=== PATIENT | male | born 1945 | race Caucasian/White ===

== ENCOUNTER 2017-03-21 12:25 | Inpatient (IN) | payer MEDICARE, OTHER ==
[2017-03-21] VITALS (7 sets, daily range): BP systolic 91–172; BP diastolic 56–92; PULSE 66–82; RESP 18; TEMP 98.4–99.2; O2SAT 94–97
[2017-03-21] MEDS ORDERED: RESP: ALBUTEROL 2.5 MG/3 ML NEB (PRN) INH (14:00)
[2017-03-21] MEDS ORDERED: ACETAMINOPHEN 325 MG TAB PO PRN (14:00)
[2017-03-21] MEDS ORDERED: ONDANSETRON HCL 4 MG/2 ML VIAL IV PRN (14:00)
[2017-03-21] MEDS ORDERED: SODIUM CHLORIDE 0.9% FLUSH 10 ML FLUSH IV FLUSH PRN (14:00)
[2017-03-21] MEDS ORDERED: MISCELLANEOUS NURSING INFORMATION XX SCH (14:00)
[2017-03-21] MEDS ORDERED: CHLORHEXIDINE GLUCONATE 2 % 1 PACK (2 CLOTHS) TOP PRN (14:00)
[2017-03-21] MEDS ORDERED: SENNOSIDES 8.6 MG TAB PO PRN (14:00)
--- NOTE | 2017-03-21 14:09 | PD.CONS ---
[facility] Service Critical Care Medicine Consult Requested By Dr. Fishman Reason for Consult Critical care management. Left ICA stenosis/vertebral stenosis Primary Care Physician Unknown History of Present Illness This is a 71-year-old male. Date of admission 03/21/2017. Date of consultation 03/21/2017. Past medical history includes nephrolithiasis, tobaccoism. Patient originally was admitted to [facility] on . Patient recently presented there with acute onset of right-sided hand weakness/paresthesias. Patient was also noted to be hypertensive at the time. CT head revealed chronic right posterior lacunar infarcts with left cruz radiata abnormalities. No acute hemorrhage. Patient was evaluated by neurology not thought to be a candidate for TPA. Patient was admitted for workup of CVA. Pertinent imaging CT head - chronic right posterior lacunar infarct CT C-spine - multilevel's spinal stenosis/DDD MRI brain - left occipital lobe CVA/right parietal lobe CVA even MANDREL MAKER/MCA distribution CTA neck - 90% left ICA at C2 level, 80-90% left vertebral artery stenosis Ultrasound carotids - less than 50% right, greater than 70% left. Echocardiogram - EF 55-60%. Mild MR/TR. RSVP 31 mmHg Hemoglobin A1c - 5.5. TSH 1.28. Cholesterol 183. HDL 26. LDL 140. Triglycerides 85. Urine toxicology screen negative BMP/CBC normal. Coags normal. UA negative. Start on simvastatin 80 mg daily, aspirin 325 mg daily and Norvasc 10 mg daily. Patient was evaluated by vascular surgery. Recommended transferred facility with Dr. Fishman accepted for evaluation for surgery versus prior stent placement. Patient is currently complaining of paresthesias/numbness in his right upper externa. No dysdiadochokinesis. No other major neurological deficits on examination. Review of Systems Constitutional: DENIES: Fatigue, Fever, Weight gain Endocrine: DENIES: Polydipsia, Polyuria Eyes: DENIES: Blurred vision, Double Vision Ears, nose, mouth, throat: DENIES: Throat pain, Ear Pain, Odynophagia Respiratory: DENIES: Cough Cardiovascular: DENIES: Chest pain Gastrointestinal: DENIES: Abdominal pain Genitourinary: DENIES: Urgency Musculoskeletal: DENIES: Back pain, Neck pain Integumentary: DENIES: Abnormal pigmentation Hematologic/lymphatic: DENIES: Bruising Immunologic/allergic: DENIES: Eczema Neurologic: DENIES: Abnormal gait Psychiatric: DENIES: Anxiety, Confusion, Depression Past Family Social History Allergies: Coded Allergies: No Known Allergies (Verified Allergy, Severe, 08/30/06) Past Medical History Nephrolithiasis One quarter pack per day tobaccoism Past Surgical History Laser lithotripsy Reported Medications Simvastatin 80 mg by mouth daily Aspirin 325 mg by mouth daily Colace 100 mg by mouth twice a day Norvasc 10 mg by mouth daily Active Ordered Medications Reviewed in EMR Family History Father with Alzheimer's disease. . No history of sudden , CVA, [place] , hypertension or diabetes Social History One quarter pack per day tobacco. No alcohol or IV drug use. Urine tox Screen Negative at [facility]. Physical Exam Vital Signs Vital Signs Date Time Temp Pulse Resp B/P Pulse Ox O2 Delivery O2 Flow Rate FiO2 03/21/17 12:47 99.2 82 18 172/92 97 Physical Exam GENERAL: 71-year-old male, critically ill currently resting in bed in no acute distress SKIN: Warm and dry. No rash HEAD: Atraumatic. Normocephalic. EYES: Pupils equal and round about 3 mm bilaterally and reactive. No scleral icterus. No injection or drainage. ENT: No nasal bleeding or discharge. Mucous membranes pink and moist. Edentulous NECK: Trachea midline. No JVD. CARDIOVASCULAR: Regular rate and rhythm. S1, S2. No S4. Without murmur RESPIRATORY: No accessory muscle use. Clear to auscultation. Breath sounds equal bilaterally. GASTROINTESTINAL: Abdomen soft, non-tender, nondistended. Hypoactive bowel sounds are appreciated MUSCULOSKELETAL: Extremities without significant peripheral edema. No obvious deformities. NEUROLOGICAL: Awake and alert. No obvious cranial nerve deficits. Motor grossly within normal limits. Five out of 5 muscle strength in the arms and legs. Normal speech. Complains of paresthesias in his right upper externa. No dysdiadochokinesis. PSYCHIATRIC: Appropriate mood and affect; insight and judgment normal. Assessment and Plan Assessment and Plan Neuro/Psych: Left occipital/parietal CVA MRI brain 03/15 revealed left occipital/parietal lobe CVA from MANDREL MAKER/MCA distribution See below for cardiovascular workup Currently on aspirin 325 milligrams by mouth daily Evaluated by neuro @[facility]. CV: Left ICA stenosis Left vertebral artery stenosis Hypertension No previous history of hypertension. Allow permissive hypertensive in light of carotid stenosis CTA revealed 90% left ICA stenosis at C2 level: 80-90% left vertebral artery stenosis. Dr. Fishman/reevaluation Echocardiogram - EF 55-60%. Mild MR/TR. RSVP 31 mmHg Started on atorvastatin 80 mg by mouth daily at [facility]. Start on Norvasc 10 mg by mouth daily [facility]. Will decrease to 5 mill grams currently. As needed labetalol, hydralazine and Nitropaste keep systolic less than 180 EKG ordered Resp: Tobaccoism Nasal cannula to maintain saturations greater than equal to 92% Incentive spirometry while awake Tobacco cessation will be encouraged Chest x-ray ordered. GI: Currently on heart healthy diet Pepcid for GI prophylaxis Colace/as needed Senokot for bowel regimen : History of nephrolithiasis Villanueva currently not indicated Endo: Sliding-scale insulin if indicated to maintain euglycemia TSH 1.28 A1c 5.5. Renal: Monitor BMP. Creatinine within normal limits at that facility Heme: Monitor CBC. Was within normal limits at [facility] ID: Monitor for infection MSK: PT/OT evaluate and treat FEN: Replace electrolytes as clinically indicated. Access - Utilize peripheral IV. Central line if indicated Prophylaxis - GI -Pepcid - DVT - SCD/foreclosure prophylaxis when okay with vascular surgery Critical Care: The total critical care time was 55 minutes. Time to perform other separately billable procedures was not included in the critical care time. Code Status Full code Discussed Condition With Patient. Care plan discussed and all questions answered. Tate Justice MD Mar 21, 2017 14:09
[2017-03-21] MEDS ORDERED: hydrALAZINE HCL 20 MG/ML VIAL IV PUSH PRN (14:15)
[2017-03-21] MEDS ORDERED: LABETALOL HCL 100 MG/20 ML VIAL IV PUSH PRN (14:15)
[2017-03-21] MEDS ORDERED: NITROGLYCERIN 2% OINT 1 GM PACKET TOPICAL PRN (14:15)
--- NOTE | 2017-03-21 15:19 | HHI.HP ---
History of Present Illness Chief Complaint: TIA History of Present Illness 71 yo male with limited prior medical care who was driving home on Wednesday ( 5d ago) when he developed acute R UE numbness and confusion. He is back to near baseline except for fingertip numbness. He has not had any such episodes before Wed. His primary atherosclerotic risk factor is tobacco use, although he has limited medical care by his admission. He lives alone in [place] [facility] and performs all of his ADLs independently, although he has no family contacts, but reportedly a friend who is coming in. Past/Family/Social History Past Medical History tobacco abuse kidney stones Past Surgical History some procedure for kidney stones Social History tobacco use - down to 12/02 ppd Family History unknown Coded Allergies: No Known Allergies (Verified Allergy, Severe, 08/30/06) Review of Systems Constitutional: DENIES: Fever, Chills Eyes: DENIES: Blurred vision, Vision loss Ears, nose, mouth, throat: COMPLAINS OF: Vertigo Respiratory: COMPLAINS OF: Wheezing, DENIES: Cough, Shortness of breath Cardiovascular: DENIES: Chest pain, Syncope, Orthopnea Physical Exam Vitals/I&O Date Time Temp Pulse Resp B/P Pulse Ox O2 Delivery O2 Flow Rate FiO2 03/21/17 12:47 99.2 82 18 172/92 97 Neuro: Slightly dysarthric sounding but he notes that this is baseline for him. Clear ability to form the words he chooses. UE and LE 5/5 strength CN intact EOMI HEENT: NC/AT; neck flexed and stiff which he notes is baseline. Unable to protrude chin significantly Neck: no JVD, no prior incisions Heart: Reg rate, no M Lungs: distant BS bilaterally Abdomen: soft, NT Vascular: palapble femoral pulses Extremities: ALANIS, 5/5 strength B thenar wasting pending Outside CTA reviewed - L ICA stenosis, calcific, at the level of bifurcation. There is also a smooth narrowing cephalad to this about 3-4 cm above bifurcation. This narrowing results in a >80% ICA stenosis distal to bifurcation. Assessment and Plan Plan Likely acute CVA, now 5d old with no recurrent/crescendo events. His ICA plaque is would be anatomically high but likely feasible except for his persistent/orthopedic neck flexion. I don't think that I could safely clamp above his distal ICA stenosis, and would be harder still to place a shunt, should one be required intraoperatively. Because of these anatomic limitations , and because of the symptomatic nature, he might be a patient who'd benefit from a carotid stent. I would like for him to be evaluated for a carotid stent , and at this institution, interventional radiology has the most expertise in this area. I have consulted IR for evaluation and possible treatment. In them meantime, ok to have reg diet, permissive hypertension, anti-platelet therapy, and statin. Observe with neuro checks. F/U admission labs. Pt understands the plan and agrees. Abhishek Fishman MD FACS mandate retail service merchandiser [facility] - Heart and Vascular Surgery at [facility] Abhishek Fishman MD Mar 21, 2017 15:19
--- NOTE | 2017-03-21 15:31 | RADRPT ---
EXAM DATE/TIME: 03/21/2017 14:47 [place] COMPARISON: No previous studies available for comparison. INDICATIONS : Cough. MEDICAL HISTORY : Chronic obstructive pulmonary disease. SURGICAL HISTORY : None. ENCOUNTER: Initial ACUITY: 1 day PAIN SCORE: 0/10 LOCATION: Bilateral chest FINDINGS: A single view of the chest demonstrates the lungs to be symmetrically aerated without evidence of mas s, infiltrate or effusion. There is mild right apical scarring. The cardiomediastinal contours are unremarkable. Both hemidiaphragms are obliterated. Osseous structures are intact. CONCLUSION: No infiltrates seen. Right apical scarring. Gabo Miller MD on March 21, 2017 at 15:28 Board Certified Radiologist. This report was verified electronically.
[2017-03-21] MEDS: ASPIRIN EC 81 MG TABEC PO SCH (15:46)
[2017-03-21] MEDS: SODIUM CHLOR 0.9% 1000 ML INJ 1,000 ML IV SCH (15:47)
[2017-03-21 16:19] LABS: AUTOMATED NEUTROPHIL # 5.9 TH/MM3 (1.8-7.7); BASOPHIL % 0.5 % (0.0-2.0); EOSINOPHIL % 0.5 % (0.0-4.0); HEMATOCRIT 42.2 % (39.0-51.0); HEMO FLAGS DIFF FINAL; LYMPHOCYTE # 1.8 TH/MM3 (1.0-4.8); MEAN CELL VOLUME 87.6 FL (80.0-100.0); MEAN CORPUSCULAR HEMOGLOBIN 29.1 PG (27.0-34.0); MEAN CORPUSCULAR HGB CONC 33.2 % (32.0-36.0); MONO % 6.7 % (0.0-8.0); NEUT % 70.3 % (16.0-70.0); PLATELET COUNT 301 TH/MM3 (150-450); RED BLOOD COUNT 4.82 MIL/MM3 (4.50-5.90); RED CELL DISTRIBUTION WIDTH 13.6 % (11.6-17.2); WHITE BLOOD COUNT 8.3 TH/MM3 (4.0-11.0)
[2017-03-21 16:30] LABS: APTT (PATIENT) 31.7 SEC (24.3-30.1); INTERNATIONAL NORMALIZED RATIO 1.1 RATIO; PROTHROMBIN TIME - PATIENT 11.7 SEC (9.8-11.6)
[2017-03-21 16:43] LABS: BICARBONATE 29.3 MEQ/L (21.0-32.0); POTASSIUM 3.2 MEQ/L (3.5-5.1)
[2017-03-21 18:15] LABS: P2Y12 REACTION UNITS (PRU) 242 PRU (194-418)
[2017-03-21] MEDS ORDERED: POTASSIUM CHLORIDE 20 MEQ CONTROLLED RELEASE TAB PO ONE (19:30)
[2017-03-21] MEDS: DOCUSATE SODIUM 100 MG CAP PO SCH (20:31)
[2017-03-21] MEDS: FAMOTIDINE 20 MG TAB PO SCH (20:31)
[2017-03-21] MEDS: ATORVASTATIN 40 MG TAB PO SCH (20:31)
[2017-03-21] MEDS: SODIUM CHLORIDE 0.9% FLUSH 10 ML FLUSH IV FLUSH SCH (20:32)
[2017-03-22] VITALS (8 sets, daily range): BP systolic 125–143; BP diastolic 64–82; PULSE 46–78; RESP 16–20; TEMP 97.8–99; O2SAT 92–100
[2017-03-22] MEDS: SODIUM CHLOR 0.9% 1000 ML INJ 1,000 ML IV SCH ×2 (03:00→13:50)
[2017-03-22] MEDS: CHLORHEXIDINE GLUCONATE 2 % 1 PACK (2 CLOTHS) TOP SCH (04:00)
--- NOTE | 2017-03-22 07:07 | HHI.CCPN ---
Subjective Remarks/Hospital Course This is a 71-year-old male. Date of admission 03/21/2017. Date of consultation 03/21/2017. Past medical history includes nephrolithiasis, tobaccoism. Patient originally was admitted to [facility] on . Patient recently presented there with acute onset of right-sided hand weakness/paresthesias. Patient was also noted to be hypertensive at the time. CT head revealed chronic right posterior lacunar infarcts with left cruz radiata abnormalities. No acute hemorrhage. Patient was evaluated by neurology not thought to be a candidate for TPA. Patient was admitted for workup of CVA. Pertinent imaging CT head - chronic right posterior lacunar infarct CT C-spine - multilevel's spinal stenosis/DDD MRI brain - left occipital lobe CVA/right parietal lobe CVA even FILTER TANK TENDER/MCA distribution CTA neck - 90% left ICA at C2 level, 80-90% left vertebral artery stenosis Ultrasound carotids - less than 50% right, greater than 70% left. Echocardiogram - EF 55-60%. Mild MR/TR. RSVP 31 mmHg Hemoglobin A1c - 5.5. TSH 1.28. Cholesterol 183. HDL 26. LDL 140. Triglycerides 85. Urine toxicology screen negative BMP/CBC normal. Coags normal. UA negative. Start on simvastatin 80 mg daily, aspirin 325 mg daily and Norvasc 10 mg daily. Patient was evaluated by vascular surgery. Recommended transferred facility with Dr. Fishman accepted for evaluation for surgery versus prior stent placement. Patient is currently complaining of paresthesias/numbness in his right upper externa. No dysdiadochokinesis. No other major neurological deficits on examination. Subjective 03/22: Episode of hypotension overnight resolved without incident. Currently since asymptomatic except for this right hand tingling. IR to evaluate for carotid today. No BM. Objective Vital Signs Date Time Temp Pulse Resp B/P Pulse Ox O2 Delivery O2 Flow Rate FiO2 03/22/17 04:00 64 03/22/17 04:00 97.8 20 125/64 99 03/22/17 04:00 Nasal Cannula 2.00 03/21/17 15:34 21 Intake and Output 03/21/17 03/21/17 03/22/17 08:00 16:00 00:00 Intake Total 240 ml Output Total 650 ml 200 ml Balance -410 ml -200 ml Result Diagram: 03/21/17 1523 03/21/17 1523 Imaging Last Impressions Chest X-Ray 03/21/17 0000 Signed Impressions: Service Date/Time: Tuesday, March 21, 2017 14:47 - CONCLUSION: No infiltrates seen. Right apical scarring. Gabo Miller MD Objective Remarks GENERAL: 71-year-old male, critically ill currently resting in bed in no acute distress SKIN: Warm and dry. No rash HEAD: Atraumatic. Normocephalic. EYES: Pupils equal and round about 3 mm bilaterally and reactive. No scleral icterus. No injection or drainage. ENT: No nasal bleeding or discharge. Mucous membranes pink and moist. Edentulous NECK: Trachea midline. No JVD. If there is a carotid bruit on the left side I could not auscultate this a.m. CARDIOVASCULAR: Bradycardic, RR. S1, S2. No S4. Without murmur RESPIRATORY: No accessory muscle use. Clear to auscultation. Breath sounds equal bilaterally. GASTROINTESTINAL: Abdomen soft, non-tender, nondistended. Hypoactive bowel sounds are appreciated MUSCULOSKELETAL: Extremities without significant peripheral edema. No obvious deformities. NEUROLOGICAL: Awake and alert. No obvious cranial nerve deficits. Motor grossly within normal limits. Five out of 5 muscle strength in the arms and legs. Normal speech. Complains of paresthesias in his right upper externa. No dysdiadochokinesis. PSYCHIATRIC: Appropriate mood and affect; insight and judgment normal. A/P Assessment and Plan Neuro/Psych: Left occipital/parietal CVA MRI brain 03/15 revealed left occipital/parietal lobe CVA from FILTER TANK TENDER/MCA distribution See below for cardiovascular workup Currently on aspirin 81 milligrams by mouth daily Evaluated by neuro @[facility]. CV: Left ICA stenosis Left vertebral artery stenosis Hypertension No previous history of hypertension. Allow permissive hypertensive in light of carotid stenosis CTA revealed 90% left ICA stenosis at C2 level: 80-90% left vertebral artery stenosis. Dr. Fishman/reevaluation Echocardiogram - EF 55-60%. Mild MR/TR. RSVP 31 mmHg Started on atorvastatin 80 mg by mouth daily at [facility]. Start on Norvasc 10 mg by mouth daily [facility]. Will decrease to 5 mill grams currently with holding parameters for greater than 1:30. As needed labetalol, hydralazine and Nitropaste keep systolic less than 180 EKG ordered Resp: Tobaccoism Nasal cannula to maintain saturations greater than equal to 92%. Currently on 2 L nasal cannula. Incentive spirometry while awake Tobacco cessation will be encouraged Chest x-ray revealed no acute cardiopulmonary findings GI: Currently on heart healthy diet Pepcid for GI prophylaxis Colace/as needed Senokot for bowel regimen : History of nephrolithiasis Villanueva currently not indicated Endo: Sliding-scale insulin if indicated to maintain euglycemia TSH 1.28 A1c 5.5. Renal: Monitor BMP. Creatinine within normal limits at that facility Heme: Monitor CBC. Was within normal limits at [facility] ID: Monitor for infection MSK: PT/OT evaluate and treat FEN: Hypokalemia Received 40 mEq KCl. Recheck this AM. Replace electrolytes as clinically indicated. Access - Utilize peripheral IV. Central line if indicated Prophylaxis - GI -Pepcid - DVT - SCD/foreclosure prophylaxis when okay with vascular surgery Critical Care: The total critical care time was 35 minutes. Time to perform other separately billable procedures was not included in the critical care time. Tate Jutsice MD Mar 22, 2017 07:07
--- NOTE | 2017-03-22 08:23 | PD.VS.PN ---
Subjective Subjective/Hospital Course Pt resting comfortably. No new neuro events overnight. Feels well. Rolly po. R hand (fingertip) still subjectively numb. Objective Vitals/I&O Date Time Temp Pulse Resp B/P Pulse Ox O2 Delivery O2 Flow Rate FiO2 03/22/17 08:04 98 21 03/22/17 07:30 99 Nasal Cannula 2.00 03/22/17 04:00 64 03/22/17 04:00 97.8 78 20 125/64 99 03/22/17 04:00 99 Nasal Cannula 2.00 03/22/17 00:00 48 03/22/17 00:00 100 Nasal Cannula 2.00 03/22/17 00:00 46 16 142/74 100 03/21/17 21:13 96 Nasal Cannula 2.00 03/21/17 20:00 98.4 74 18 91/56 96 03/21/17 20:00 72 03/21/17 20:00 96 Nasal Cannula 2.00 03/21/17 16:02 98.8 66 18 100/74 96 03/21/17 15:34 94 21 03/21/17 15:00 70 03/21/17 12:47 99.2 82 18 172/92 97 03/21/17 12:30 70 03/22/17 03/22/17 03/22/17 07:00 15:00 23:00 Intake Total 1238 ml Output Total 350 ml Balance 888 ml Physical Exam alert, oriented ALANIS without focal deficit Speech stable Laboratory Laboratory Tests Test 03/21/17 03/21/17 03/21/17 15:23 15:55 16:43 White Blood Count 8.3 Red Blood Count 4.82 Hemoglobin 14.0 Hematocrit 42.2 Mean Corpuscular Volume 87.6 Mean Corpuscular Hemoglobin 29.1 Mean Corpuscular Hemoglobin 33.2 Concent Red Cell Distribution Width 13.6 Platelet Count 301 Mean Platelet Volume 8.0 Neutrophils (%) (Auto) 70.3 Lymphocytes (%) (Auto) 22.0 Monocytes (%) (Auto) 6.7 Eosinophils (%) (Auto) 0.5 Basophils (%) (Auto) 0.5 Neutrophils # (Auto) 5.9 Lymphocytes # (Auto) 1.8 Monocytes # (Auto) 0.6 Eosinophils # (Auto) 0.0 Basophils # (Auto) 0.0 CBC Comment DIFF FINAL Differential Comment Prothrombin Time 11.7 Prothromb Time International 1.1 Ratio Activated Partial 31.7 Thromboplast Time Sodium Level 141 Potassium Level 3.2 Chloride Level 106 Carbon Dioxide Level 29.3 Anion Gap 6 Blood Urea Nitrogen 8 Creatinine 0.68 Estimat Glomerular Filtration 114 Rate Random Glucose 78 Calcium Level 8.8 Nasal Screen MRSA (PCR) MRSA NOT DETECTED Platelet Function P2Y12 React 242 Units Imaging Last 48 hours Impressions Chest X-Ray 03/21/17 0000 Signed Impressions: Service Date/Time: Tuesday, March 21, 2017 14:47 - CONCLUSION: No infiltrates seen. Right apical scarring. Gabo Miller MD Assessment and Plan Plan Likely acute CVA, recovered, with no recurrence. I will d/w IR re: SANDHYA. Either that or medical management. No CEA. Continue diet, permissive hypertension, antiplatelet therapy, and statin. Pt understands the plan and agrees. Abhishek Fishman MD FACS business planning manager [facility] - Heart and Vascular Surgery at [facility] Abhishek Fishman MD Mar 22, 2017 08:23
[2017-03-22] MEDS: DOCUSATE SODIUM 100 MG CAP PO SCH ×2 (09:14→21:07)
[2017-03-22] MEDS: ASPIRIN EC 81 MG TABEC PO SCH (09:14)
[2017-03-22] MEDS: amLODIPine BESYLATE 5 MG TAB PO SCH (09:14)
[2017-03-22] MEDS: FAMOTIDINE 20 MG TAB PO SCH ×2 (09:14→21:07)
[2017-03-22] MEDS: SODIUM CHLORIDE 0.9% FLUSH 10 ML FLUSH IV FLUSH SCH ×2 (09:15→21:00)
[2017-03-22 10:05] LABS: MEAN CELL VOLUME 86.7 FL (80.0-100.0); MEAN CORPUSCULAR HEMOGLOBIN 29.6 PG (27.0-34.0); MEAN CORPUSCULAR HGB CONC 34.1 % (32.0-36.0); PLATELET COUNT 309 TH/MM3 (150-450); RED BLOOD COUNT 4.61 MIL/MM3 (4.50-5.90); RED CELL DISTRIBUTION WIDTH 13.7 % (11.6-17.2); REVIEW FLAG FINAL; WHITE BLOOD COUNT 7.8 TH/MM3 (4.0-11.0)
[2017-03-22 10:30] LABS: BICARBONATE 29.2 MEQ/L (21.0-32.0); MAGNESIUM 1.9 MG/DL (1.5-2.5); POTASSIUM 3.6 MEQ/L (3.5-5.1)
[2017-03-22] MEDS ORDERED: CLOPIDOGREL 300 MG TAB PO ONE (10:30)
--- NOTE | 2017-03-22 14:34 | EKG ---
Date Performed: 03/21/2017 Time Performed: 15:12:08 PTAGE: 71 years EKG: Sinus rhythm . Septal and lateral ST-T changes are nonspecific Borderline ECG NO PREVIOUS TRACING DOCTOR: Farshad Welch Interpretating Date/Time 03/22/2017 14:28:31
[2017-03-22] MEDS: ATORVASTATIN 40 MG TAB PO SCH (21:07)
[2017-03-22] MEDS: SODIUM BICARBONATE 8.4% INJ 50 MEQ in DEXTROSE 5% IN WATE 1000ML INJ 1,000 ML IV SCH ×2 (22:57)
[2017-03-23] VITALS (12 sets, daily range): BP systolic 116–157; BP diastolic 63–89; PULSE 43–66; RESP 15–18; TEMP 98.1–98.5; O2SAT 94–98
[2017-03-23] MEDS: SODIUM CHLOR 0.9% 1000 ML INJ 1,000 ML IV SCH (01:45)
[2017-03-23] MEDS: CHLORHEXIDINE GLUCONATE 2 % 1 PACK (2 CLOTHS) TOP SCH (04:00)
[2017-03-23] MEDS: amLODIPine BESYLATE 5 MG TAB PO SCH (08:40)
[2017-03-23] MEDS: CLOPIDOGREL 75 MG TAB PO SCH (08:40)
[2017-03-23] MEDS: DOCUSATE SODIUM 100 MG CAP PO SCH ×2 (08:40→21:00)
[2017-03-23] MEDS: FAMOTIDINE 20 MG TAB PO SCH ×2 (08:40→21:00)
[2017-03-23] MEDS: SODIUM CHLORIDE 0.9% FLUSH 10 ML FLUSH IV FLUSH SCH ×2 (08:41→21:00)
[2017-03-23] MEDS: ASPIRIN EC 81 MG TABEC PO SCH (08:41)
--- NOTE | 2017-03-23 08:43 | HHI.CCPN ---
Subjective Remarks/Hospital Course This is a 71-year-old male. Date of admission 03/21/2017. Date of consultation 03/21/2017. Past medical history includes nephrolithiasis, tobaccoism. Patient originally was admitted to [facility] on . Patient recently presented there with acute onset of right-sided hand weakness/paresthesias. Patient was also noted to be hypertensive at the time. CT head revealed chronic right posterior lacunar infarcts with left cruz radiata abnormalities. No acute hemorrhage. Patient was evaluated by neurology not thought to be a candidate for TPA. Patient was admitted for workup of CVA. 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 Echocardiogram - EF 55-60%. Mild MR/TR. RSVP 31 mmHg Hemoglobin A1c - 5.5. TSH 1.28. Cholesterol 183. HDL 26. LDL 140. Triglycerides 85. Urine toxicology screen negative BMP/CBC normal. Coags normal. UA negative. Start on simvastatin 80 mg daily, aspirin 325 mg daily and Norvasc 10 mg daily. Patient was evaluated by vascular surgery. Recommended transferred facility with Dr. Fishman accepted for evaluation for surgery versus prior stent placement. Patient is currently complaining of paresthesias/numbness in his right upper externa. No dysdiadochokinesis. No other major neurological deficits on examination. 03/22: Episode of hypotension overnight resolved without incident. Currently since asymptomatic except for this right hand tingling. IR to evaluate for carotid today. No BM. Subjective 03/23: Neurologically unchanged. Currently resting in bed in no acute distress. Right upper extremity wrapped in Johnny bandage secondary to protect peripheral IV. Afebrile. To IR for stent placement today Objective Vital Signs Date Time Temp Pulse Resp B/P Pulse Ox O2 Delivery O2 Flow Rate FiO2 03/23/17 07:47 95 Room Air 03/23/17 07:42 98.2 60 18 129/68 03/22/17 19:55 21 03/22/17 07:30 2.00 Intake and Output 03/22/17 03/22/17 03/23/17 08:00 16:00 00:00 Intake Total 1238 ml 1765 ml Output Total 350 ml 700 ml Balance 888 ml 1065 ml Result Diagram: 03/22/1730 03/22/17929 Imaging Last Impressions Chest X-Ray 03/21/17 0000 Signed Impressions: Service Date/Time: Tuesday, March 21, 2017 14:47 - CONCLUSION: No infiltrates seen. Right apical scarring. Gabo Miller MD Objective Remarks GENERAL: 71-year-old male, critically ill currently resting in bed in no acute distress SKIN: Warm and dry. No rash HEAD: Atraumatic. Normocephalic. EYES: Pupils equal and round about 3 mm bilaterally and reactive. No scleral icterus. No injection or drainage. ENT: No nasal bleeding or discharge. Mucous membranes pink and moist. Edentulous NECK: Trachea midline. No JVD. If there is a carotid bruit on the left side I could not auscultate this a.m. CARDIOVASCULAR: Bradycardic, RR. S1, S2. No S4. Without murmur RESPIRATORY: No accessory muscle use. Clear to auscultation. Breath sounds equal bilaterally. GASTROINTESTINAL: Abdomen soft, non-tender, nondistended. Hypoactive bowel sounds are appreciated MUSCULOSKELETAL: Extremities without significant peripheral edema. No obvious deformities. NEUROLOGICAL: Awake and alert. No obvious cranial nerve deficits. Motor grossly within normal limits. Five out of 5 muscle strength in the arms and legs. Normal speech. Complains of paresthesias in his right upper externa. No dysdiadochokinesis. PSYCHIATRIC: Appropriate mood and affect; insight and judgment normal. A/P Assessment and Plan Neuro/Psych: Left occipital/parietal CVA MRI brain 03/15 revealed left occipital/parietal lobe CVA from VISUAL DESIGNER/MCA distribution See below for cardiovascular workup Currently on aspirin 81 milligrams by mouth daily Evaluated by neuro @[facility]. CV: Left ICA stenosis Left vertebral artery stenosis Hypertension No previous history of hypertension. Allow permissive hypertensive in light of carotid stenosis CTA revealed 90% left ICA stenosis at C2 level: 80-90% left vertebral artery stenosis. Dr. Fishman/reevaluation recommended IR stent placement to be performed today Echocardiogram - EF 55-60%. Mild MR/TR. RSVP 31 mmHg Started on atorvastatin 80 mg by mouth daily at [facility]. Start on Norvasc 10 mg by mouth daily [facility]. Will decrease to 5 mill grams currently with holding parameters for greater than 1:30. As needed labetalol, hydralazine and Nitropaste keep systolic less than 180 EKG with no significant ST T changes Resp: Tobaccoism Nasal cannula to maintain saturations greater than equal to 92%. Currently on room air. Incentive spirometry while awake Tobacco cessation will be encouraged Chest x-ray revealed no acute cardiopulmonary findings GI: Currently nothing by mouth for 6placement today Pepcid for GI prophylaxis Colace/as needed Senokot for bowel regimen : History of nephrolithiasis Villanueva currently not indicated Endo: Sliding-scale insulin if indicated to maintain euglycemia TSH 1.28 A1c 5.5. Renal: Monitor BMP. Creatinine within normal limits at that facility Heme: Monitor CBC. Was within normal limits at [facility] ID: Monitor for infection MSK: PT/OT evaluate and treat FEN: Hypokalemia Received 40 mEq KCl. Recheck/24 3.6 Replace electrolytes as clinically indicated. Access - Utilize peripheral IV. Central line if indicated Prophylaxis - GI -Pepcid - DVT - SCD/holding pharmacological prophylaxis until okay with vascular surgery Critical Care: The total care time was 35 minutes. Time to perform other separately billable procedures was not included in the critical care time. Tate Justice MD Mar 23, 2017 08:42
[2017-03-23] MEDS ORDERED: fentaNYL CITRATE 250 MCG/5 ML AMP ONE ×2 (11:20→12:33)
[2017-03-23] MEDS ORDERED: MIDAZOLAM HCL 5 MG/5 ML VIAL ONE ×2 (11:20→12:33)
[2017-03-23] MEDS ORDERED: VERAPAMIL HCL 5 MG/2 ML VIAL ONE (11:21)
[2017-03-23] MEDS ORDERED: ASPIRIN 325 MG TAB PO ONE (11:45)
[2017-03-23] MEDS ORDERED: HEPARIN SODIUM - IV 10,000 UNITS/10 ML VIAL ONE (12:11)
--- NOTE | 2017-03-23 13:43 | PD.VS.PN ---
Subjective Subjective/Hospital Course Pt resting comfortably. No new neuro events overnight. Feels well. Rolly po until last night when made NPO Discussed with IR - plan for SANDHYA today Objective Vitals/I&O Date Time Temp Pulse Resp B/P Pulse Ox O2 Delivery O2 Flow Rate FiO2 03/23/17 11:00 63 03/23/17 11:00 96 Room Air 03/23/17 11:00 98.2 60 18 148/89 95 03/23/17 08:52 95 21 03/23/17 07:47 95 Room Air 03/23/17 07:42 98.2 60 18 129/68 95 03/23/17 07:26 59 03/23/17 04:00 95 Room Air 03/23/17 04:00 98.4 65 16 157/83 95 03/23/17 04:00 66 03/23/17 00:00 94 Room Air 03/23/17 00:00 56 16 135/76 94 03/23/17 00:00 56 03/22/17 20:00 92 Room Air 03/22/17 20:00 98.0 51 18 127/68 92 03/22/17 20:00 50 03/22/17 19:55 93 21 03/22/17 15:00 95 Room Air 03/22/17 15:00 98.6 58 18 134/79 95 03/22/17 15:00 54 03/23/17 03/23/17 03/23/17 07:00 15:00 23:00 Intake Total 1151 ml Output Total 1200 ml Balance -49 ml Physical Exam neuro intact Assessment and Plan Plan Likely acute CVA, recovered, with no recurrence. SANDHYA and then likely d/c tomorrow on Plavix with RTC 1m. Abhishek Fishman MD FACS detention officer [facility] - Heart and Vascular Surgery at [facility] Abhishek Fishman MD Mar 23, 2017 13:43
[2017-03-23] MEDS ORDERED: IODIXANOL 320 MG/ML 50 ML VIAL (for RAD SPEC) I-ARTERIAL ONE (13:49)
[2017-03-23] MEDS ORDERED: oxyCODONE/ACETAMINOPHEN 5 MG/325 MG TAB PO PRN (15:45)
--- NOTE | 2017-03-23 15:45 | PD.RAD ---
Post Procedure Progress Note Pre Procedure Diagnosis: (1) Carotid stenosis Post Procedure Diagnosis: (1) Carotid stenosis Procedure Date: Mar 23, 2017 Supervising Radiologist: Alexis Bloom Proceduralist/Assist: Kallie Hunt, RT(R), Naida Luna RT(R)() Anesthesia: Conscious Sedation Plan of Activity Patient to Unit: Nursing Unit Patient Condition: Good See PACS Report for procedural detail/treatment Vascular-Arterial Procedure Procedure 1 Procedure Site: Left Carotid Procedure(s): Angiogram, Stent Placement Access Access Site(s): Right Femoral Artery Closure Site(s): Right vascular closure device Alexis Bloom MD Mar 23, 2017 15:45
[2017-03-23] MEDS: SODIUM BICARBONATE 8.4% INJ 50 MEQ in DEXTROSE 5% IN WATE 1000ML INJ 1,000 ML IV SCH ×2 (21:00)
[2017-03-23] MEDS: ATORVASTATIN 40 MG TAB PO SCH (21:00)
[2017-03-24] MEDS: SODIUM CHLOR 0.9% 1000 ML INJ 1,000 ML IV SCH (01:35)
[2017-03-24 03:30] VITALS: BP 113/49; PULSE 52; RESP 15; TEMP 98; O2SAT 96
[2017-03-24] MEDS: CHLORHEXIDINE GLUCONATE 2 % 1 PACK (2 CLOTHS) TOP SCH (04:00)
[2017-03-24 07:00] VITALS: PULSE 54
--- NOTE | 2017-03-24 07:22 | PD.VS.PN ---
Subjective Subjective/Hospital Course Pt had SANDHYA yesterday with IR. No reported complications. Nausea last night better this morning. Neuro intact Objective Vitals/I&O Date Time Temp Pulse Resp B/P Pulse Ox O2 Delivery O2 Flow Rate FiO2 03/24/17 03:30 52 03/24/17 03:30 98.0 52 15 113/49 96 03/24/17 03:30 96 Nasal Cannula 3.00 03/23/17 23:43 98.1 43 15 123/63 96 03/23/17 23:43 96 Nasal Cannula 3.00 03/23/17 23:43 44 03/23/17 22:03 98 Nasal Cannula 3.00 03/23/17 19:43 95 Nasal Cannula 3.00 03/23/17 19:43 98.2 53 17 116/74 95 03/23/17 19:42 51 03/23/17 15:23 96 Room Air 03/23/17 15:21 98.5 52 18 145/85 95 03/23/17 15:00 56 03/23/17 11:00 63 03/23/17 11:00 96 Room Air 03/23/17 11:00 98.2 60 18 148/89 95 03/23/17 08:52 95 21 03/23/17 07:47 95 Room Air 03/23/17 07:42 98.2 60 18 129/68 95 03/23/17 07:26 59 Physical Exam R groin without ecchymoses or swelling Neuro intact Assessment and Plan Plan HL IVF D/C today on Plavix RTC 1m with carotid duplex.. Abhishek Fishman MD FACS oceanography teacher [facility] - Heart and Vascular Surgery at [facility] Discharge Planning today Abhishek Fishman MD Mar 24, 2017 07:22
[2017-03-24 07:34] VITALS: BP 149/80; PULSE 58; RESP 15; TEMP 98.6; O2SAT 96
--- NOTE | 2017-03-24 07:44 | HHI.CCPN ---
Subjective Remarks/Hospital Course This is a 71-year-old male. Date of admission 03/21/2017. Date of consultation 03/21/2017. Past medical history includes nephrolithiasis, tobaccoism. Patient originally was admitted to [facility] on . Patient recently presented there with acute onset of right-sided hand weakness/paresthesias. Patient was also noted to be hypertensive at the time. CT head revealed chronic right posterior lacunar infarcts with left cruz radiata abnormalities. No acute hemorrhage. Patient was evaluated by neurology not thought to be a candidate for TPA. Patient was admitted for workup of CVA. 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 Echocardiogram - EF 55-60%. Mild MR/TR. RSVP 31 mmHg Hemoglobin A1c - 5.5. TSH 1.28. Cholesterol 183. HDL 26. LDL 140. Triglycerides 85. Urine toxicology screen negative BMP/CBC normal. Coags normal. UA negative. Start on simvastatin 80 mg daily, aspirin 325 mg daily and Norvasc 10 mg daily. Patient was evaluated by vascular surgery. Recommended transferred facility with Dr. Fishman accepted for evaluation for surgery versus prior stent placement. Patient is currently complaining of paresthesias/numbness in his right upper externa. No dysdiadochokinesis. No other major neurological deficits on examination. 03/22: Episode of hypotension overnight resolved without incident. Currently since asymptomatic except for this right hand tingling. IR to evaluate for carotid today. No BM. 03/23: Neurologically unchanged. Currently resting in bed in no acute distress. Right upper extremity wrapped in Johnny bandage secondary to protect peripheral IV. Afebrile. To IR for stent placement today Subjective 03/24: Episode of nausea overnight. Hemodynamically stable. No new neurological signs. Status post left carotid artery stent by IR yesterday. Objective Vital Signs Date Time Temp Pulse Resp B/P Pulse Ox O2 Delivery O2 Flow Rate FiO2 03/24/17 07:34 98.6 58 15 149/80 96 03/24/17 07:34 Room Air 03/24/17 03:30 3.00 03/23/17 08:52 21 Intake and Output 03/23/17 03/23/17 03/24/17 08:00 16:00 00:00 Intake Total 1151 ml 2230 ml Output Total 1200 ml 1025 ml Balance -49 ml 1205 ml Result Diagram: 03/22/17 0930 03/22/17 0930 Imaging Last Impressions Chest X-Ray 03/21/17 0000 Signed Impressions: Service Date/Time: Tuesday, March 21, 2017 14:47 - CONCLUSION: No infiltrates seen. Right apical scarring. Gabo Miller MD Objective Remarks GENERAL: 71-year-old male, critically ill currently resting in bed in no acute distress SKIN: Warm and dry. No rash HEAD: Atraumatic. Normocephalic. EYES: Pupils equal and round about 3 mm bilaterally and reactive. No scleral icterus. No injection or drainage. ENT: No nasal bleeding or discharge. Mucous membranes pink and moist. Edentulous NECK: Trachea midline. No JVD. If there is a carotid bruit on the left side I could not auscultate this a.m. CARDIOVASCULAR: Bradycardic, RR. S1, S2. No S4. Without murmur RESPIRATORY: No accessory muscle use. Clear to auscultation. Breath sounds equal bilaterally. GASTROINTESTINAL: Abdomen soft, non-tender, nondistended. Hypoactive bowel sounds are appreciated MUSCULOSKELETAL: Extremities without significant peripheral edema. No obvious deformities. NEUROLOGICAL: Awake and alert. No obvious cranial nerve deficits. Motor grossly within normal limits. Five out of 5 muscle strength in the arms and legs. Normal speech. Complains of paresthesias in his right upper externa. No dysdiadochokinesis. PSYCHIATRIC: Appropriate mood and affect; insight and judgment normal. 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 CV: Left ICA stenosis Left vertebral artery stenosis Hypertension No previous history of hypertension. Allow permissive hypertensive in light of carotid stenosis CTA revealed 90% left ICA stenosis at C2 level: 80-90% left vertebral artery stenosis. Dr. Fishman/reevaluation recommended IR stent placement Status post left carotid artery stenosis placed by IR 03/23. Aspirin 81 mg daily Plavix 75 mg by mouth daily Echocardiogram - EF 55-60%. Mild MR/TR. RSVP 31 mmHg Started on atorvastatin 80 mg by mouth daily at [facility]. Start on Norvasc 10 mg by mouth daily [facility]. Will decrease to 5 mill grams currently with holding parameters for greater than 1:30. As needed labetalol, hydralazine and Nitropaste keep systolic less than 180 EKG with no significant ST T changes Resp: Tobaccoism Nasal cannula to maintain saturations greater than equal to 92%. Currently on room air. Incentive spirometry while awake Tobacco cessation will be encouraged Chest x-ray revealed no acute cardiopulmonary findings GI: Advance diet per Celi surgery Pepcid for GI prophylaxis Colace/as needed Senokot for bowel regimen : History of nephrolithiasis Villanueva currently not indicated Endo: Sliding-scale insulin if indicated to maintain euglycemia TSH 1.28 A1c 5.5. Renal: Monitor BMP. Creatinine within normal limits at that facility Heme: Monitor CBC. Was within normal limits at [facility] ID: Monitor for infection MSK: PT/OT evaluate and treat FEN: Hypokalemia Received 40 mEq KCl on 03/22. Recheck/ 3.6 Replace electrolytes as clinically indicated. Access - Utilize peripheral IV. Central line if indicated Prophylaxis - GI -Pepcid - DVT - SCD/holding pharmacological prophylaxis until okay with vascular surgery Critical Care: The total care time was 35 minutes. Time to perform other separately billable procedures was not included in the critical care time. Patient is stable from a critical care medicine standpoint to discharge home today. Follow-up with Dr. Fishman 1 month per his recommendations Tate Justice MD Mar 24, 2017 07:44
[2017-03-24 07:50] VITALS: O2SAT 96
[2017-03-24] MEDS: SODIUM CHLORIDE 0.9% FLUSH 10 ML FLUSH IV FLUSH SCH (08:19)
[2017-03-24] MEDS: DOCUSATE SODIUM 100 MG CAP PO SCH (08:21)
[2017-03-24] MEDS: CLOPIDOGREL 75 MG TAB PO SCH (08:21)
[2017-03-24] MEDS: amLODIPine BESYLATE 5 MG TAB PO SCH (08:21)
[2017-03-24] MEDS: FAMOTIDINE 20 MG TAB PO SCH (08:21)
[2017-03-24] MEDS: ASPIRIN EC 81 MG TABEC PO SCH (08:21)
[2017-03-24] MEDS ORDERED: PLAV75TA29 PO (10:46)
--- NOTE | 2017-03-24 10:58 | PD.VS.DC ---
Discharge Summary Admission Date: Mar 21, 2017 at 12:25 Discharge Date: Mar 24, 2017 Admission Diagnosis: (1) Carotid stenosis Discharge Diagnosis: (1) Carotid stenosis Status: Acute Brief History from admission 71 yo male with limited prior medical care who was driving home on Wednesday ( 5d ago) when he developed acute R UE numbness and confusion. He is back to near baseline except for fingertip numbness. He has not had any such episodes before Wed. His primary atherosclerotic risk factor is tobacco use, although he has limited medical care by his admission. He lives alone in [facility] and performs all of his ADLs independently, although he has no family contacts, but reportedly a friend who is coming in. Procedure(s): Angiogram, Stent Placement Significant Findings GENERAL: A&OX3, NAD SKIN: Warm and dry. NECK: Supple, No JVD CARDIOVASCULAR: +S1,S2 RESPIRATORY: BS CTA bilaterally. No accessory muscle use. GASTROINTESTINAL: Abdomen soft, non-tender, nondistended. MUSCULOSKELETAL: No cyanosis, or edema. Laboratory Tests Test 03/21/17 03/22/17 15:23 09:30 Neutrophils (%) (Auto) 70.3 % (16.0-70.0) Prothrombin Time 11.7 SEC (9.8-11.6) Activated Partial 31.7 SEC Thromboplast Time (24.3-30.1) Potassium Level 3.2 MEQ/L (3.5-5.1) Random Glucose 118 MG/DL (74-106) Hospital Course: 71 yo male with limited prior medical care who was driving home on Wednesday ( 5d ago) when he developed acute R UE numbness and confusion. He is back to near baseline except for fingertip numbness. He has not had any such episodes before Wed. His primary atherosclerotic risk factor is tobacco use, although he has limited medical care by his admission. Pt had SANDHYA yesterday with IR. He is doing well this am without complications, neuro intact Will have pt f/u in our OPC in 1M with a surveillance carotid U/S Pt will also f/u with PCP next week (Dr. Payne) Allergies Coded Allergies Type Severity Reaction Last Updated Verified No Known Allergies Allergy Severe 08/30/06 Yes 03/22////// 06:00 18:00 06:00 18:00 06:00 18:00 Intake Total 1238 ml 1765 ml 1151 ml 2230 ml 1556 ml 688 ml Output Total 350 ml 700 ml 1200 ml 1025 ml 750 ml Balance 888 ml 1065 ml -49 ml 1205 ml 1556 ml -62 ml Intake Oral 240 ml 1200 ml 240 ml 600 ml 240 ml 625 ml IV Total 998 ml 565 ml 911 ml 1630 ml 1316 ml 63 ml Output Urine Total 350 ml 700 ml 1200 ml 1025 ml 750 ml # Bowel Movements 0 0 0 0 0 Laboratory Tests Test 03/21/17 03/21/17 03/21/17 03/22/17 15:23 15:55 16:43 09:30 White Blood Count 8.3 TH/MM3 7.8 TH/MM3 Red Blood Count 4.82 MIL/MM3 4.61 MIL/MM3 Hemoglobin 14.0 GM/DL 13.6 GM/DL Hematocrit 42.2 % 40.0 % Mean Corpuscular Volume 87.6 FL 86.7 FL Mean Corpuscular Hemoglobin 29.1 PG 29.6 PG Mean Corpuscular Hemoglobin 33.2 % 34.1 % Concent Red Cell Distribution Width 13.6 % 13.7 % Platelet Count 301 TH/MM3 309 TH/MM3 Mean Platelet Volume 8.0 FL 8.0 FL Neutrophils (%) (Auto) 70.3 % Lymphocytes (%) (Auto) 22.0 % Monocytes (%) (Auto) 6.7 % Eosinophils (%) (Auto) 0.5 % Basophils (%) (Auto) 0.5 % Neutrophils # (Auto) 5.9 TH/MM3 Lymphocytes # (Auto) 1.8 TH/MM3 Monocytes # (Auto) 0.6 TH/MM3 Eosinophils # (Auto) 0.0 TH/MM3 Basophils # (Auto) 0.0 TH/MM3 CBC Comment DIFF FINAL Differential Comment Prothrombin Time 11.7 SEC Prothromb Time International 1.1 RATIO Ratio Activated Partial 31.7 SEC Thromboplast Time Sodium Level 141 MEQ/L 140 MEQ/L Potassium Level 3.2 MEQ/L 3.6 MEQ/L Chloride Level 106 MEQ/L 104 MEQ/L Carbon Dioxide Level 29.3 MEQ/L 29.2 MEQ/L Anion Gap 6 MEQ/L 7 MEQ/L Blood Urea Nitrogen 8 MG/DL 10 MG/DL Creatinine 0.68 MG/DL 0.69 MG/DL Estimat Glomerular Filtration 114 ML/MIN 112 ML/MIN Rate Random Glucose 78 MG/DL 118 MG/DL Calcium Level 8.8 MG/DL 9.3 MG/DL Nasal Screen MRSA (PCR) MRSA NOT DETECTED Platelet Function P2Y12 React 242 PRU Units Phosphorus Level 2.6 MG/DL Magnesium Level 1.9 MG/DL Procedure Category Date Status Time Complete Blood Count LAB 03/21/17 Complete With Diff 12:47 Basic Metabolic Panel LAB 03/21/17 Complete (Bmp) 12:47 Coag Profile LAB 03/21/17 Complete 12:47 Consult Automatic Beam Warper Tender CONS 03/21/17 Transmitted Diet Heart Healthy DIET 03/21/17 Complete Lunch (Hub Use Only)Inp Phy CONS 03/21/17 Transmitted Cons/Ref Aspirin Ec (Ecotrin MED 03/21/17 In Process Ec) 14:00 Code Status CODE 03/21/17 Transmitted 14:00 Vital Signs (Adult) FIORELLA 03/21/17 Complete 14:00 Activity Bed Rest FIORELLA 03/21/17 In Process 14:00 ^ Elevate Head Of Bed FIORELLA 03/21/17 In Process 14:00 Neuro Checks FIORELLA 03/21/17 Complete 14:00 Intake + Output FIORELLA 03/21/17 In Process 14:00 Sodium Chlor 0.9% MED 03/21/17 Complete 1000 Ml Inj (Ns 1000 M 14:00 Sodium Chloride 0.9% MED 03/21/17 In Process Flush (Ns Flush) 14:00 Sodium Chloride 0.9% MED 03/21/17 In Process Flush (Ns Flush) 21:00 Acetaminophen MED 03/21/17 In Process (Tylenol) 14:00 Famotidine (Pepcid) MED 03/21/17 In Process 21:00 Ondansetron Inj MED 03/21/17 In Process (Zofran Inj) 14:00 Docusate Sodium MED 03/21/17 In Process (Colace) 21:00 Sennosides (Senokot) MED 03/21/17 In Process 14:00 Albuterol Neb MED 03/21/17 In Process (Albuterol Neb) 14:00 Resp Incentive RSP 03/21/17 Complete Spirometry Resp Oxygen Jagdeep C RSP 03/21/17 Logged Titrat 1-4 L Pt Request For Service PT 03/21/17 Logged 14:00 Call Out Clerk / FIORELLA 03/21/17 In Process Telemetry 14:00 Scd Bilateral/Knee FIORELLA 03/21/17 In Process High 14:00 ^ Initiate Protocol FIORELLA 03/21/17 In Process 14:00 ^ Instruction FIORELLA 03/21/17 In Process 14:00 Misc Nursing MED 03/21/17 In Process Information 14:00 Chlorhexidine 2% MED 03/22/17 In Process Cloth (Chlorhexidine 04:00 Chlorhexidine 2% MED 03/21/17 In Process Cloth (Chlorhexidine 14:00 Mrsa Pcr Surveillance LAB 03/21/17 Complete 14:00 Atorvastatin (Lipitor) MED 03/21/17 In Process 21:00 Labetalol Inj MED 03/21/17 In Process (Trandate Inj) 14:15 Hydralazine Inj MED 03/21/17 In Process (Apresoline Inj) 14:15 Nitroglycerin 2% Oint MED 03/21/17 In Process (Nitroglycerin 2% 14:15 Amlodipine (Norvasc) MED 03/22/17 In Process 09:00 Electrocardiogram CAV 03/21/17 Resulted Chest, Single Ap RADDIAG 03/21/17 Resulted Verify Now P2y12 LAB 03/21/17 Complete Platelet Inh 15:15 Admit To Inpatient ADMITTING 03/21/17 Transmitted 17:08 Potassium Chloride MED 03/21/17 Complete (Kcl) 19:30 Vascular Access Team [facility] 03/22/17 Complete Consult/P 04:58 Vascular Poc IMGUS 03/22/17 Taken Ultrasound Basic Metabolic Panel LAB 03/22/17 Complete (Bmp) 07:03 Magnesium (Mg) LAB 03/22/17 Complete 07:03 Phosphorus (Po4) LAB 03/22/17 Complete 07:03 Cbc No Diff, Includes LAB 03/22/17 Complete Plts 07:03 Ot Request For Service OT 03/22/17 Logged 07:07 Swallow Eval W/ St ST 03/22/17 Logged 07:07 Activity Oob With FIORELLA 03/22/17 In Process Assistance 07:07 Consult Pt Eval & Tx PT 03/22/17 Complete OOB 07:07 Clopidogrel (Plavix) MED 03/22/17 Complete 10:30 Clopidogrel (Plavix) MED 03/23/17 In Process 09:00 Vascular Access Team FIORELLA 03/22/17 Complete Consult/P 15:04 Vascular Poc IMGUS 03/22/17 Taken Ultrasound Npo After Midnight W/ DIET 03/23/17 Complete Po Meds Breakfast Dextrose 5% In MED 03/22/17 Complete Wate... W/Sodium 21:00 Vascular Access Team FIORELLA 03/23/17 Complete Consult/P 07:13 Vascular Poc IMGUS 03/23/17 Taken Ultrasound Aspirin (Aspirin) MED 03/23/17 Complete 11:45 Midazolam Inj (Versed MED 03/23/17 Complete Inj) 11:20 Fentanyl Inj MED 03/23/17 Complete (Fentanyl Inj) 11:20 Verapamil Inj MED 03/23/17 Complete (Isoptin Inj) 11:21 Heparin Inj (Heparin MED 03/23/17 Complete Inj) 12:11 Midazolam Inj (Versed MED 03/23/17 Complete Inj) 12:33 Fentanyl Inj MED 03/23/17 Complete (Fentanyl Inj) 12:33 Angiogram, Cerebral RADINV 03/23/17 Taken Wo Arch Us Guided Vascular RADINV 03/23/17 Taken Access Cerv Carotid Stent RADINV 03/23/17 Taken Plcmt,W/Epd Cerv Carotid Stent RADINV 03/23/17 Taken Plcmt,W/Epd Angioplasty, RADINV 03/23/17 Taken Peripheral F/U Thru Existing Cath RADINV 03/23/17 Taken F/U Thru Existing Cath RADINV 03/23/17 Taken Iodixanol 320 Inj MED 03/23/17 Complete (Visipaque 320 Inj) 13:49 Oxycodone-Acetamin MED 03/23/17 In Process 5-325 Mg (Percocet 15:45 Vital Signs (Adult) FIORELLA 03/23/17 Complete 15:43 Neuro Checks FIORELLA 03/23/17 Complete 15:43 Notify Parameters FIORELLA 03/23/17 In Process 15:43 ^ Apply Pressure FIORELLA 03/23/17 In Process 15:43 ^ Dressings FIORELLA 03/23/17 In Process 15:43 Activity Bed Rest FIORELLA 03/23/17 In Process 15:43 Remove Urinary FIORELLA 03/23/17 In Process Catheter 15:43 Diet Heart Healthy DIET 03/23/17 Transmitted Dinner ^ Other Nursing Orders FIORELLA 03/24/17 In Process 07:22 Attending Discharge DISCHARGE 03/24/17 Transmitted Order Vital Signs Date Time Temp Pulse Resp B/P Pulse Ox O2 Delivery O2 Flow Rate FiO2 03/24/17 07:50 96 21 03/24/17 07:34 98.6 58 15 149/80 96 03/24/17 07:34 96 Room Air 03/24/17 07:00 54 03/24/17 03:30 52 03/24/17 03:30 98.0 52 15 113/49 96 03/24/17 03:30 96 Nasal Cannula 3.00 03/23/17 23:43 98.1 43 15 123/63 96 03/23/17 23:43 96 Nasal Cannula 3.00 03/23/17 23:43 44 03/23/17 22:03 98 Nasal Cannula 3.00 03/23/17 19:43 95 Nasal Cannula 3.00 03/23/17 19:43 98.2 53 17 116/74 95 03/23/17 19:42 51 03/23/17 15:23 96 Room Air 03/23/17 15:21 98.5 52 18 145/85 95 03/23/17 15:00 56 03/23/17 11:00 63 03/23/17 11:00 96 Room Air 03/23/17 11:00 98.2 60 18 148/89 95 03/23/17 08:52 95 21 03/23/17 07:47 95 Room Air 03/23/17 07:42 98.2 60 18 129/68 95 03/23/17 07:26 59 03/23/17 04:00 95 Room Air 03/23/17 04:00 98.4 65 16 157/83 95 03/23/17 04:00 66 03/23/17 00:00 94 Room Air 03/23/17 00:00 56 16 135/76 94 03/23/17 00:00 56 03/22/17 20:00 92 Room Air 03/22/17 20:00 98.0 51 18 127/68 92 03/22/17 20:00 50 03/22/17 19:55 93 21 03/22/17 15:00 95 Room Air 03/22/17 15:00 98.6 58 18 134/79 95 03/22/17 15:00 54 03/22/17 11:00 56 03/22/17 11:00 95 Room Air 03/22/17 11:00 99.0 64 18 143/82 95 03/22/17 08:04 98 21 03/22/17 07:30 10 Nasal Cannula 2.00 03/22/17 07:30 70 03/22/17 07:30 99 Nasal Cannula 2.00 03/22/17 07:30 97.9 70 18 143/70 100 03/22/17 04:00 64 03/22/17 04:00 97.8 78 20 125/64 99 03/22/17 04:00 99 Nasal Cannula 2.00 03/22/17 00:00 48 03/22/17 00:00 100 Nasal Cannula 2.00 03/22/17 00:00 46 16 142/74 100 03/21/17 21:13 96 Nasal Cannula 2.00 03/21/17 20:00 98.4 74 18 91/56 96 03/21/17 20:00 72 03/21/17 20:00 96 Nasal Cannula 2.00 03/21/17 16:02 98.8 66 18 100/74 96 03/21/17 15:34 94 21 03/21/17 15:00 70 03/21/17 12:47 99.2 82 18 172/92 97 03/21/17 12:30 70 Discharge Condition: Good Discharge Disposition: Discharge Home Discharge Instructions: Follow up with PCP Elmer in 1 week Follow up in our OPC at scheduled appointment time 04/23/17 at 1000 Call the office to report any new concerns Take medications as prescribed Ling DUARTE [facility] [phone] Any questions or concerns: Call [facility] at [facility] [phone] Ling Parr Mar 24, 2017 10:58
[2017-03-24] MEDS ORDERED: ATOR40TA16 PO (11:01)
[2017-03-24] MEDS ORDERED: AMLO5 PO (11:01)
[2017-03-24] MEDS ORDERED: ASPI81TA11 PO (11:01)
[2017-03-24] MEDS ORDERED: METO-309 PO (11:26)
--- NOTE | 2017-03-26 13:31 | RADRPT ---
EXAM DATE/TIME: 03/23/2017 12:07 [facility] COMPARISON: CERV CAROTID STENT PLCMT W/EPD, LEFT, March 23, 2017, 0:00. INDICATIONS : Patient with history of left carotid artery stenosis in need of aniogram with possible interventions. MEDICAL HISTORY : 1.Left carotid stenosis 2. Tabacco use 3.Kidney stone SURGICAL HISTORY : 1.Kidney stone procedure ENCOUNTER: Initial ACUITY: 1 week PAIN SCORE: 0/10 FLUORO TIME: 13.6 minutes IMAGE SERIES: 1 ACCESS SITE: Right Femoral artery SEDATION TIME: 60 minutes CONTRAST: 60 cc Visipaque (iodixanol) MEDICATION(S): 1.) 4.5 mg midazolam (Versed) IV 2.) 225 mcg fentanyl (Sublimaze) IV DEVICE(S): 1.) Left internal carotid artery 5.0mm SpideRX embolic protection 2.) Left internal carotid artery 4.0mm x 40mm BOX LINING MACHINE OPERATOR balloon 3.) Left internal carotid artery Protege 6 x 40 stent (self expanding) 4.) Left common carotid artery Protege 8>6 x 40 stent (self expanding) 5.) Right common femoral artery 6F Angio-Seal PROCEDURE : 1. Ultrasound guided puncture of the right common femoral artery. 2. Angiography of the right common femoral artery prior to closure device. 3. Conscious sedation with continuous EKG and oximetry monitoring. 4. Percutaneous closure of the femoral artery. 5. Angiography of the left common carotid artery 6. stent placement of the left internal carotid artery x2 The risks, benefits and alternatives to the procedure were explained and verbal and written consent w as obtained. The site was prepped in sterile fashion. Full sterile technique was used, including ca p, mask, sterile gloves and gown and a large sterile sheet. Hand hygiene and 2% chlorhexidine and/or betadine/alcohol prep was utilized per protocol for cutaneous antisepsis. The skin and subcutaneous tissues were infiltrated with local anesthetic solution. With ultrasound and fluoroscopic guidance the right common femoral artery was punctured and a vascula r sheath was placed. Angiography of the common femoral artery was performed for evaluation prior to p ercutaneous closure device placement. The patient has a one aortic arch which is bovine. Examination of the carotid artery demonstrates the lesion to be in the internal carotid artery. Visible thrombus is not present. Ulceration is not pres ent. There is no calcification present. The lesion length is 440 millimeters. The minimal luminal joe meter is one millimeters. The diameter of the distal internal carotid artery for reference is 5 [place] meters. The percent stenosis by NASCET criteria is 80 %. Angiography of the left common carotid artery demonstrates focal high-grade stenosis of 70% at the or igin of the left internal carotid artery with a stenosis of 80% more distally above the angle of the mandible. On systemic heparinization a sheath was placed in the common carotid artery and the prescri bed filter device was placed above the lesion. Angioplasty was performed prior to placement of the ov erlapping stents extending from the C2 level through the bifurcation. Followup angiography demonstrat es no change in this renal circulation prior to or following stent placement. The puncture site was closed with a Perclose suture mediated closure device. The patient tolerated t he procedure well and there were no complications. Conscious sedation was performed with the prescribed dosages and duration as above in the presence of an independent trained radiology nurse to assist in the monitoring of the patient. EKG and oximetry remained stable throughout the procedure. CONCLUSION: 1. Uncomplicated carotid artery stent placement as above. 2. Ultrasound examination at 6, 12, 18 and 24 months following procedure should be performed to evalu ate stent patency. Alexis Bloom MD on March 26, 2017 at 13:26 Board Certified Radiologist. This report was verified electronically.
== END 2017-03-24 14:30 | disposition home or self-care (01) | DRG 39 ==
LOC: HCVR 12:25
PROVIDERS: ADMIT Surgery; ATTEND Surgery
PROC: 037L34Z Dilation of Left Internal Carotid Artery with Drug-eluting Intraluminal Device, Percutaneous Approach (ICD-10-PCS; principal; 2017-03-23)
DX: I63.9 Cerebral infarction, unspecified (principal); I95.9 Hypotension, unspecified; M48.02 Spinal stenosis, cervical region; J44.9 Chronic obstructive pulmonary disease, unspecified; I10 Essential (primary) hypertension; I65.22 Occlusion and stenosis of left carotid artery; I65.02 Occlusion and stenosis of left vertebral artery; E87.6 Hypokalemia; Z79.82 Long term (current) use of aspirin; Z79.02 Long term (current) use of antithrombotics/antiplatelets; Z79.899 Other long term (current) drug therapy; F17.200 Nicotine dependence, unspecified, uncomplicated; Z87.442 Personal history of urinary calculi
CPT/HCPCS: 37215; 37218; 71010; 76937; 80048; 83735; 84100; 85025; 85027; 85576; 85610; 85730; 87641; 93005; 94150; 99152; 99153; C1725; C1760; C1769; C1876; C1884; C1887; C1894; J0360; J1644; J2250; J3010; J7030; J7070; Q9967